=== PATIENT | female | born 1985 | race Caucasian/White ===

== ENCOUNTER 2020-05-03 09:24 | Emergency (ER) | payer OTHER ==
[~2020-05-03] VITALS: Ht 175.3 cm; Wt 81.7 kg
[~2020-05-03 09:24] MED LIST: FLAGYL500 MG PO; PYRIDIUM200 MG PO; SYNTHROID50 MCG PO
[2020-05-03] MEDS ORDERED: AMOXICILLIN 50500 M1 PO (10:09)
[2020-05-03 10:15] VITALS: BP 122/74
== END 2020-05-03 10:12 | disposition home or self-care (01) ==
LOC: ER 09:24
DX: J02.0 Streptococcal pharyngitis (principal); Z79.899 Other long term (current) drug therapy; Z87.891 Personal history of nicotine dependence

== ENCOUNTER 2020-10-05 13:16 | Emergency (ER) | payer OTHER ==
[~2020-10-05] VITALS: Ht 175.3 cm; Wt 81.7 kg
[~2020-10-05 13:16] MED LIST changes: +AMOXICILLIN 50500 M1 PO
[2020-10-05] MEDS ORDERED: IBU600 MG PO (14:10)
[2020-10-05 14:34] VITALS: BP 127/87
== END 2020-10-05 14:35 | disposition home or self-care (01) ==
LOC: ER 13:16
DX: J02.0 Streptococcal pharyngitis (principal); Z20.822 Contact with and (suspected) exposure to COVID-19; F17.210 Nicotine dependence, cigarettes, uncomplicated; Z87.890 Personal history of sex reassignment; Z79.899 Other long term (current) drug therapy

== ENCOUNTER 2021-04-20 07:37 | Emergency (ER) | payer OTHER ==
[~2021-04-20] VITALS: Ht 175.3 cm; Wt 81.7 kg
[~2021-04-20 07:37] MED LIST changes: +IBU600 MG PO
[2021-04-20 07:39] VITALS: BP 117/85
== END 2021-04-20 08:53 | disposition home or self-care (01) ==
LOC: ER 07:37
PROVIDERS: Emergency Medicine
DX: J02.9 Acute pharyngitis, unspecified (principal); Z20.822 Contact with and (suspected) exposure to COVID-19; F17.210 Nicotine dependence, cigarettes, uncomplicated